=== PATIENT | female | born 1955 | race Caucasian/White ===

== ENCOUNTER 2017-05-24 17:04 | Emergency (ER) | payer BC, OTHER ==
[~2017-05-24] VITALS: Ht 165.1 cm; Wt 59.0 kg
[~2017-05-24 17:04] MED LIST: LORA1TAB PO; LORT5TAB PO; SERT-132 PO; TEMA30CA PO
[2017-05-24 17:06] VITALS: BP 112/64; PULSE 94; RESP 20; TEMP 98.3; O2SAT 96
--- NOTE | 2017-05-24 17:22 | PD ---
HPI Chief Complaint: Musculoskeletal Complaint Time Seen by Provider: 17:11 Travel History International Travel<30 days: No Contact w/Intl Traveler<30days: No Traveled to known affect area: No History of Present Illness HPI 61-year-old female that presents to the ED for evaluation of left wrist pain. Per patient she accidentally had a fall while doing yardwork. Per patient she doesn't know if she hold to something or fell into her wrist but she's been having pain since. Per patient he states that he was maybe the shoulder and the pain was more in the shoulder than the wrist. Per patient now pain is more on the wrist. She does have some bruising and swelling noted on the radial aspect of the wrist. Tender to touch in this area. 2+ pulses bilaterally. She denies any her loosing consciousness. Patient states that he was still quite for her to not is what happened. She states that the pain is 8 out of 10. Mainly on the wrist. She states hasn't tingling sensation to her fingers. Per patient any movement from the wrist causes significant discomfort. No urinary or bowel movement issues. No back pain or neck pain. No other medical issues at this time. PFSH Past Medical History Arthritis: Yes Anxiety: Yes Depression: Yes Cancer: No Cardiovascular Problems: No Diabetes: No Hepatitis: No Hiatal Hernia: No Hypertension: No Thyroid Disease: No ?: Not Menopausal: Yes Past Surgical History Eye Surgery: Yes (LEFT EYE CORRECTION FOR DOUBLE VISION) Neurologic Surgery: Yes (BACK AND NECK) Other Surgery: Yes (CYST REMOVED TO RIGHT LEG) Social History Alcohol Use: No Tobacco Use: No Substance Use: No Allergies-Medications (Allergen,Severity, Reaction): Coded Allergies: No Known Allergies (Verified Adverse Reaction, Unknown, 05/24/17) Reported Meds & Prescriptions Reported Meds & Active Scripts Active Diclofenac Sodium DR (Diclofenac Sodium) 75 Mg Tabdr 75 Mg PO BID PRN Reported Oxycodone (Oxycodone HCl) 5 Mg Cap 5 Mg PO Q4H PRN Vitamin D3 (Cholecalciferol) 2,000 Unit Cap 2,000 Units PO DAILY Xhance Inh (Fluticasone Propionate) 93 Mcg/Actuation Aer.br.act 1 [place] EACH NARE BID PRN Align (Lactobacillus Rhamnosus (GG)) 4 Mg (1 Billion Cell) Cap 4 Mg PO DAILY Breo Ellipta Inh (Fluticasone/Vilanterol) 200-25 Mcg/Act Inh 1 Puff INH DAILY Use daily at the same time. Montelukast (Montelukast Sodium) 10 Mg Tab 10 Mg PO HS Proair Respiclick Inh (Albuterol Sulfate) 90 Mcg/Act Aerp 1 Puff INH Q4H PRN Temazepam 30 Mg Cap 30 Mg PO HS PRN Lorazepam 1 Mg Tab 1 Mg PO DAILY PRN Claritin-D 24 HR (Loratadine-Pseudoephedrine 24 HR) 10-240 Mg Tab 1 Tab PO DAILY Review of Systems Except as stated in HPI: all other systems reviewed are Neg Physical Exam Narrative GENERAL: SKIN: Warm and dry. HEAD: Atraumatic. Normocephalic. EYES: Pupils equal and round. No scleral icterus. No injection or drainage. ENT: No nasal bleeding or discharge. Mucous membranes pink and moist. NECK: Trachea midline. No JVD. CARDIOVASCULAR: Regular rate and rhythm. RESPIRATORY: No accessory muscle use. Clear to auscultation. Breath sounds equal bilaterally. GASTROINTESTINAL: Abdomen soft, non-tender, nondistended. Hepatic and splenic margins not palpable. MUSCULOSKELETAL: Extremities without clubbing, cyanosis, or edema. No obvious deformities. Full range of motion of the upper and lower extremities bilaterally with the exception of the left wrist which she has a little discomfort and pain on the radial aspect of the wrist. Bruising and swelling noted especially on the ventral aspect of the wrist. 2+ pulses bilaterally. Sensation intact bilaterally. Full range of motion of the digits but with some pain especially with flexion. No obvious elbow, shoulder discomfort noted or abnormality noted. NEUROLOGICAL: Awake and alert. No obvious cranial nerve deficits. Motor grossly within normal limits. Five out of 5 muscle strength in the arms and legs. Normal speech. PSYCHIATRIC: Appropriate mood and affect; insight and judgment normal. Data Data Last Documented VS Vital Signs Date Time Temp Pulse Resp B/P (MAP) Pulse Ox O2 Delivery O2 Flow Rate FiO2 05/24/17 17:06 98.3 94 20 112/64 (80) 96 Orders Orders Wrist, Complete (Olb1vej) (05/24/17 17:15) Ice/Cold Pack (05/24/17 17:15) Splint Or Brace Apply/Monitor (05/24/17 18:25) Ed Discharge Order (05/24/17 18:25) MDM Medical Decision Making Medical Screen Exam Complete: Yes Emergency Medical Condition: Yes Medical Record Reviewed: Yes Interpretation(s) Last Impressions Wrist X-Ray 05/24/17 3405 Signed Impressions: Service Date/Time: Wednesday, May 24, 2017 17:57 - CONCLUSION: 1. No acute fracture seen 2. Dorsal wrist soft tissue swelling. Mark Banuelos MD Differential Diagnosis Fracture versus sprain versus strain versus bruise versus contusion Narrative Course 61-year-old female that presents to the ED for evaluation of left wrist pain after injury. Patient was properly examined and was found to have signs and symptoms concerning for fractures. X-rays were done. X-rays showed no sign of acute disease. Patient was pressure. At this time recommend brace, patient received takes oxycodone home. I recommend that she takes diclofenac sodium to help with pain and discomfort. Ice or warm compresses. Follow-up with PCP. See ED worsening symptoms. Diagnosis Primary Impression: Left wrist sprain Qualified Codes: S63.502A - Unspecified sprain of left wrist, initial encounter Patient Instructions: General Instructions Additional Instructions: Take medications as prescribed. Follow-up with PCP. See ED for any worsening symptoms. Do not drink or drive while taking pain medication. Apply ice or heat as needed for pain Med/Other Pt SpecificInfo: Prescription(s) given Scripts Diclofenac Sodium DR (Diclofenac Sodium DR) 75 Mg Tabdr 75 MG PO BID Y for PAIN SCALE 1 TO 10, #20 TAB 0 Refills Prov: Vignesh Alejandra MD 05/24/17 Disposition: 01 DISCHARGE HOME Condition: Stable Adair Kirkpatrick May 24, 2017 17:22
[2017-05-24] MEDS ORDERED: ALBU1AER5 INH (17:33)
[2017-05-24] MEDS ORDERED: OXYC1CAP PO (17:33)
[2017-05-24] MEDS ORDERED: FLUT16AE EACH NARE (17:33)
[2017-05-24] MEDS ORDERED: VITA2000 PO (17:33)
[2017-05-24] MEDS ORDERED: FLUT1INH7 INH (17:33)
[2017-05-24] MEDS ORDERED: TEMA30CA PO (17:33)
[2017-05-24] MEDS ORDERED: LORA-400 PO (17:33)
[2017-05-24] MEDS ORDERED: LORA1TAB12 PO (17:33)
[2017-05-24] MEDS ORDERED: MONT10TA4 PO (17:33)
[2017-05-24] MEDS ORDERED: ALIG4CAP PO (17:33)
--- NOTE | 2017-05-24 18:09 | RADRPT ---
EXAM DATE/TIME: 05/24/2017 17:57 [facility] COMPARISON: No previous studies available for comparison. INDICATIONS : Fell on left wrist , pain all over wrist area MEDICAL HISTORY : None. SURGICAL HISTORY : None. ENCOUNTER: Initial ACUITY: 1 day PAIN SCORE: 10/10 LOCATION: Left wrist FINDINGS: Three view examination of the left wrist demonstrates no periosteal thickening, dislocation, or fract ure. The carpal bones are in normal alignment. The joint spaces are maintained. Mild degenerative changes in the articulation between the 1st metacarpus and trapezium. Bony mineralization is mildly decreased. Moderate soft tissue swelling about the dorsal wrist. CONCLUSION: 1. No acute fracture seen 2. Dorsal wrist soft tissue swelling. Mark Banuelos MD on May 24, 2017 at 18:06 Board Certified Radiologist. This report was verified electronically.
[2017-05-24] MEDS ORDERED: DICL75TA PO (18:25)
== END 2017-05-24 18:35 | disposition home or self-care (01) ==
LOC: PHEFT 17:04
DX: S63.502A Unspecified sprain of left wrist, initial encounter (principal); W01.0XXA Fall on same level from slipping, tripping and stumbling without subsequent striking against object, initial encounter; Y93.H2 Activity, gardening and landscaping; Y92.007 Garden or yard of unspecified non-institutional (private) residence as the place of occurrence of the external cause
CPT/HCPCS: 73110; 99283; L3908